=== PATIENT | male | born 1970 | race Caucasian/White ===

== ENCOUNTER 2023-08-16 11:41 | Emergency (ER) | payer BC, SELFPAY ==
--- NOTE | ~2023-08-16 | XR_ITS ---
EXAMINATION: XR CHEST CLINICAL INFORMATION: Right-sided chest pain COMPARISON: None available. TECHNIQUE: 2 views of the chest were obtained. FINDINGS: No significant abnormality is noted involving the heart, lungs, mediastinum, bony thorax or soft tissues. XR/XR chest 2V IMPRESSION: Unremarkable examination.
--- NOTE | 2023-08-16 11:43 | ECG_ITS ---
Test Reason : CHEST PAIN Blood Pressure : / mmHG Vent. Rate : 102 BPM Atrial Rate : 102 BPM P-R Int : 148 ms QRS Dur : 094 ms QT Int : 364 ms P-R-T Axes : 026 023 032 degrees QTc Int : 474 ms Sinus tachycardia Otherwise normal ECG No previous ECGs available Referred By: Generic ED Physician Electronically Signed By:Valentin Connors
[2023-08-16 12:03] VITALS: BP 146/101; PULSE 100; RESP 18; TEMP 36.5; O2SAT 98; BMI 31.8
--- NOTE | 2023-08-16 12:04 | ED.CHESTPAIN ---
HPI - Chest Pain General Chief Complaint: Chest Pain Stated Complaint: Chest pain rad to back Time Seen by Provider: 08/16/23 17:42 Source: patient, RN notes reviewed and old records reviewed Mode of arrival: ambulatory Limitations: no limitations History of Present Illness HPI narrative: 52-year-old male with past medical history significant for hypertension and renal stones presents to the ED today for evaluation of acute onset right-sided chest pain that began while at work this morning. 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 Since this time he has had approximately 7 episodes of pain. Pain radiates to the back. Denies exacerbating or relieving factors. He did not take any [id number] medications prior to arrival in ED. he has never had pain like this previously. He does admit to superficial left lower extremity clot following COVID last year. He was not placed on any anticoagulation for this. He has not currently on anticoagulation or aspirin. Admits to commuting 1 hour to work every day. As a construction equipment operator, there are times where he is very sedentary at work. Denies any other recent travel or long car rides. Denies history of [place]. denies recent sick contacts. Denies headache, dizziness, syncope, palpitations, shortness of breath, dyspnea, calf pain/tenderness, swelling of the extremities. Related Data Previous Rx's ?Medication ?Instructions ?Recorded indomethacin 25 mg capsule 25 mg PO TID #20 caps 08/16/23 prednisone 20 mg tablet 40 mg (2 x 20 mg) PO DAILY 5 days 08/16/23 #10 tabs Allergies Allergy/AdvReac Type Severity Reaction Status Date / Time No Known Allergies Allergy Verified 08/16/23 12:06 Review of Systems Review of Systems: Constitutional: No fever, chills, fatigue, night sweats, weight changes ENT/Mouth: No ear pain, hearing loss, nasal congestion, sinus pain, rhinorrhea, sore throat Eyes: No eye pain, swelling, redness, vision changes, discharge Cardio: No palpitations, BROWNE, orthopnea, peripheral edema, +chest pain Pulm: No SOB, cough, sputum, wheezing, dyspnea, hemoptysis GI: No nausea, vomiting, hematemesis, abdominal pain, diarrhea, constipation, hematochezia, melena : No irregular bleeding, dysuria, frequency, urgency, hesitancy, hematuria, flank pain, urinary flow changes, urinary incontinence or retention MSK: No back pain, neck pain, joint pain, myalgias Skin: No lesions, rashes Neuro: No weakness, numbness, paresthesias, LOC, dizziness, headache Psych: No anxiety/panic, depression, SI/HI, AH/VH All other systems reviewed and are negative. [facility] Past Medical History Attestation statement: The following information was validated with the patient. Source: old records reviewed and nursing notes reviewed Social History Social History Advance Directives: No Advance Directives Information Provided: No Do you have a plan to hurt others: No Plan Physical Exam Vital Signs: Vital Signs: Last Vital Signs Temp 97.7 F 08/16/23 12:03 Pulse 91 08/16/23 18:11 Resp 18 08/16/23 18:11 BP 150/89 H 08/16/23 18:11 Pulse Ox 96 08/16/23 18:11 O2 Del Method Room Air 08/16/23 18:11 BMI result Body Mass Index 31.8 Patient hypertensive and tachycardic, vitals otherwise WNL. Const: General: cooperative, healthy appearing, comfortable and no acute distress Orientation/consciousness: patient oriented x3 Limitations: no limitations HEENT: Head: Yes normal to inspection, Yes No palpable skull fracture present, Yes normocephalic and Yes atraumatic Eyes: General: appearance normal, both eyes and all related structures Conjunctivae: conjunctivae normal Sclerae: sclerae normal Pupils: Equal, round and reactive pupils present Neck: Neck: Yes normal visual inspection, Yes full ROM, Yes no lymphadenopathy and Yes no JVD Chest: Chest palpation & inspection: normal inspection of the chest and normal palpation of entire chest wall Resp: Effort & Inspection: normal respiratory effort and able to speak in complete sentences Auscultation: clear to auscultation bilaterally Cardio: Other: no peripheral edema Jugular venous distension: no JVD Rate: tachycardic Rhythm: regular rhythm Skin: General skin exam: no rashes or lesions noted Neuro: General: patient oriented x3 and gait normal Cranial nerves: Yes Equal, round and reactive pupils present Extrem: General: Yes normal to inspection, Yes capillary refill normal, Yes no pedal edema and Yes no calf tenderness Course Course Course Narrative: This is a Rapid Medical Examination (RME) performed by Teto Leal PA-C in triage. Full HPI, ROS, assessment and treatment plan per primary provider in the Main ED. 52 yo male with HTN presents to the ER for evaluation of right sided stabbing chest pain that comes and goes - started at 9 am when he was in a meeting. pain radiates to the back, constant level 1/10 and shoots up to a 10/10. intermittent SOB and nausea. No recent travel, no leg swelling. AAO X3 in triage, appears well, not diaphoretic. tachycardic, reg rhythm HR low 100s. lungs CTAB. chest wall is nontender to palpation. no LE edema. Plan: EKG, CXR, labs Reevaluation(s) Reevaluation #1: 9443-- CBC without leukocytosis or left shift. No anemia. H&H stable. Chemistry without acute electrolyte abnormality requiring intervention. BUN 17, creatinine 1.17. Normal liver function. Troponin undetectable x2 > ACS unlikely. EKG showing sinus tachycardia with a rate of 102 beats per minute, QT 364, QTC 474, no acute ischemic changes or ST elevations. Chest x-ray unremarkable. No signs of pneumonia or effusion. > labs, EKG and imaging all ordered prior to my assumption of care. Given patient has a PERC score of 2 with unremarkable cardiac workup, D-dimer ordered to rule out PE. 1838-- D-dimer undetectable > PE unlikely. No clear etiology for right-sided chest pain. Question pleurisy vs costochondritis. Will send patient home with indomethacin and prednisone. Discussed all workup results with patient. At this time, I feel patient is safe for discharge. Patient has remained stable throughout ED visit today. Discussed worrisome signs and symptoms and when to return to the ED. All questions answered at this time. Patient is agreeable with disposition and stable for discharge. Medications Administered Discontinued Medications Generic Name Dose Route Start Last Admin Trade Name Freq PRN Reason Stop Dose Admin Ketorolac Tromethamine 30 mg 08/16/23 17:48 08/16/23 18:13 Ketorolac Tromethamine 30 Mg/Ml Vial IM 08/16/23 17:49 Not Given ONCE ONE Medical Decision Making Medical Decision Making MDM Narrative: 52-year-old male with past medical history significant for hypertension and renal stones presents to the ED today for evaluation of acute onset right-sided chest pain that began while at work this morning. Patient hypertensive to 146/101. He has a history of hypertension and reports taking his medications this morning. He is also tachycardic to 100. Vitals otherwise WNL. Afebrile. He is nontoxic-appearing and in no acute distress. Sitting comfortably on the exam bed. On my exam, regular rate and rhythm. Lungs are CTA bilaterally. No JVD. No calf tenderness. No peripheral edema. No rashes. Differential diagnosis includes ACS, arrhythmia, pneumonia, costochondritis, pleuritis, PE. Lower suspicion for GERD, pancreatitis. Unlikely pleural effusion. Labs, EKG, chest x-ray obtained prior to my assumption of care. Will obtain D-dimer and re-evaluate. Differential Diagnosis Differential Diagnoses: The differential diagnosis associated with the presentation includes As above Admission/Observation Not indicated Lab Data MDM Lab Attestation statement: I reviewed the patient's lab results. As above 08/16/23 12:13 08/16/23 12:13 Labs: Lab Results 08/16/23 08/16/23 08/16/23 Range/Units 12:13 17:15 18:10 WBC 6.2 (4.8-10.8) X10*3/uL RBC 5.13 (4.60-5.80) X10*6/uL Hgb 15.3 (14.0-18.0) g/dl Hct 43.4 (42.0-52.0) % MCV 84.6 (80.0-98.0) fL MCH 29.8 (27.0-33.0) pg MCHC 35.3 (31.0-36.0) g/dl RDW 12.6 (11.0-16.0) % Plt Count 202 (160-400) X10*3/uL MPV 9.1 L (9.4-12.4) fL Immature Gran % (Auto) 0.3 (0.0-0.4) % Neut % (Auto) 66.0 (45-73) % Lymph % (Auto) 24.4 (20-40) % Ferry % (Auto) 7.5 (2-11) % Eos % (Auto) 1.1 (0-4) % Baso % (Auto) 0.7 (0-2) % Lymph # (Auto) 1.5 (1.2-4.9) X10*3/uL Ferry # (Auto) 0.5 (0.1-1.2) X10*3/uL Eos # (Auto) 0.1 (0.0-0.4) X10*3/uL Baso # (Auto) 0.0 (0.0-0.2) X10*3/uL Abs Immat Gran (auto) 0.02 (0.00-0.03) X10*3/uL Absolute Neuts (auto) 4.1 (2.0-8.3) x10*3/uL Absolute Nucleated RBC 0.000 (0.0-0.012) X10*3/uL Nucleated RBC % (auto) 0.0 (0.0-0.2) /100WBC PT 11.0 L (11.1-13.3) SEC INR 0.9 (0.9-1.1) APTT 31.7 (26.0-36.8) SEC D-Dimer High Sensitivty < 150 NG/ML Sodium 139 (135-145) mmol/L Potassium 3.4 (3.3-5.1) mmol/L Chloride 104 (96-108) mmol/L Carbon Dioxide 23 (22-29) mmol/L Anion Gap 15 (12-20) BUN 17 H (9-16) mg/dL Creatinine 1.17 (0.5-1.4) mg/dL Estim Creat Clear Calc 95.1 Estimated GFR > 60 Random Glucose 91 (60-115) mg/dL Calcium 10.0 (8.4-10.2) mg/dL Magnesium 2.1 (1.6-2.6) mg/dL Total Bilirubin 0.6 (0.0-1.0) mg/dL Direct Bilirubin 0.2 (0.0-0.5) mg/dL AST 27 (5-37) U/L ALT 50 H (0-40) U/L Alkaline Phosphatase 82 (39-117) U/L Troponin I High Sens < 2.7 < 2.7 (<3.5-35.0) ng/L Total Protein 7.9 (6.5-8.0) g/dL Albumin 4.4 (3.5-5.0) g/dL Independent Interpretation I performed an independent interpretation of an: Plain X-Ray Interpretation: Chest x-ray does not demonstrate infiltrate or consolidation, agree with radiologist's interpretation. EKG showing sinus tachycardia at a rate of 102 beats per minute, QT 364, QTC 474, no acute ischemic changes or ST elevations. No priors to compare to. Radiology Impression Discussion of test interpretation with radiology: I have reviewed the radiologist's reading. Radiologist Impression: EXAMINATION: XR CHEST CLINICAL INFORMATION: Right-sided chest pain COMPARISON: None available. TECHNIQUE: 2 views of the chest were obtained. FINDINGS: No significant abnormality is noted involving the heart, lungs, mediastinum, bony thorax or soft tissues. XR/XR chest 2V IMPRESSION: Unremarkable examination. Prescription Management I considered prescription management with: Pain Medication Chronic Conditions Patient?s care impacted by: Hypertension Social Determinants Patient?s care significantly limited by Social Determinants of Health including: Other Social Determinant of Health Critical Care Time Critical Care Time Critical Care Time: Yes Total Critical Care Time: 40 Attestation: Critical care time in the amount of 40 minutes has been provided to the patient in terms of direct patient care, frequent reevaluation, review and interpretation of medical data and results, and management of potentially life-threatening conditions. This is all outside of any medical procedures. Discharge Plan Discharge Clinical Impression: Chest pain Patient Disposition: Home, Self-Care Instructions: Chest Pain (ED), Noncardiac Chest Pain (ED) Additional Instructions: Your labs today are reassuring. You do not have a blood clot. Your EKG is normal. Your chest x-ray is normal. There is no clear etiology for your chest pain. Indomethacin as an anti-inflammatory that has been sent to your pharmacy. Take this as needed for pain/discomfort. Do not take this with other NSAIDs such as ibuprofen or Aleve as this may cause increased risk of GI bleeding. Prednisone is a steroid that has been sent to your pharmacy for you to take for the next 5 days. Please follow-up with your primary care provider. Return with new or worsening symptoms. In the case of an emergency call 911. Prescriptions: New indomethacin 25 mg capsule 25 mg PO TID Qty: 20 0RF Rx Instructions: administer with food or milk prednisone 20 mg tablet 40 mg PO DAILY 5 Days Qty: 10 0RF Referrals: [facility] [Provider Group] [facility] [Provider Group] [facility] [Provider Group] Print Language: Lao
[2023-08-16 12:19] LABS: MANUAL DIFF FLAG NO
[2023-08-16 12:22] LABS: Basophils Percent Auto 0.7 % (0-2); Eosinophils Absolute Auto 0.1 X10*3/uL (0.0-0.4); Eosinophils Percent Auto 1.1 % (0-4); Hematocrit 43.4 % (42.0-52.0); Hemoglobin 15.3 g/dl (14.0-18.0); Imm Gran Abs Auto 0.02 X10*3/uL (0.00-0.03); Imm Gran Pct Auto 0.3 % (0.0-0.4); Lymphocytes Absolute Auto 1.5 X10*3/uL (1.2-4.9); Lymphocytes Percent Auto 24.4 % (20-40); Mean Corpuscular HGB Conc 35.3 g/dl (31.0-36.0); Mean Corpuscular Hemoglobin 29.8 pg (27.0-33.0); Mean Corpuscular Volume 84.6 fL (80.0-98.0); Mean Platelet Volume 9.1 fL (9.4-12.4); Monocytes Absolute Auto 0.5 X10*3/uL (0.1-1.2); Monocytes Percent Auto 7.5 % (2-11); Neutrophils Absolute Auto 4.1 x10*3/uL (2.0-8.3); Platelet Count 202 X10*3/uL (160-400); Red Blood Count 5.13 X10*6/uL (4.60-5.80); Red Cell Distribution Width 12.6 % (11.0-16.0); White Blood Count 6.2 X10*3/uL (4.8-10.8)
[2023-08-16 12:31] LABS: INTERNATIONAL NORM RATIO 0.9 (0.9-1.1)
[2023-08-16 12:33] LABS: Partial Thromboplastin Time 31.7 SEC (26.0-36.8)
[2023-08-16 12:35] LABS: Alanine Aminotransferase 50 U/L (0-40); Albumin Level 4.4 g/dL (3.5-5.0); Alkaline Phosphatase 82 U/L (39-117); Anion Gap 15 (12-20); Aspartate Amino Transferase 27 U/L (5-37); Bilirubin Direct 0.2 mg/dL (0.0-0.5); Bilirubin Total 0.6 mg/dL (0.0-1.0); Blood Urea Nitrogen 17 mg/dL (9-16); Carbon Dioxide 23 mmol/L (22-29); Chloride 104 mmol/L (96-108); Creatinine Clr Calc Pharmacy 95.1; Estimated Glomerular Filt Rate > 60; Glucose Random 91 mg/dL (60-115); Magnesium 2.1 mg/dL (1.6-2.6); Potassium 3.4 mmol/L (3.3-5.1); Sodium 139 mmol/L (135-145); Total Protein 7.9 g/dL (6.5-8.0)
[2023-08-16 12:47] LABS: Troponin-I High Sensitivity < 2.7 ng/L (<3.5-35.0)
[2023-08-16 17:44] LABS: Troponin-I High Sensitivity < 2.7 ng/L (<3.5-35.0)
[2023-08-16 18:11] VITALS: BP 150/89; PULSE 91; RESP 18; O2SAT 96
[2023-08-16 18:26] LABS: D Dimer High Sensitivity < 150 NG/ML
[2023-08-16 20:00] VITALS: BP 144/83; PULSE 89; RESP 16; TEMP 36.7; O2SAT 97
== END 2023-08-16 20:01 | disposition home or self-care (01) ==
PROVIDERS: Physician Assistant; Physician Assistant Medical; Emergency Provider Emergency Medicine
DX: R07.9 Chest pain, unspecified (principal); I10 Essential (primary) hypertension; Z79.899 Other long term (current) drug therapy
CPT/HCPCS: 36415; 71046; 80048; 80076; 83735; 84484; 85025; 85379; 85610; 85730; 93005; 99284; 99285

== ENCOUNTER → 2023-08-16 11:43 | Outpatient (BNV) | payer SELFPAY | PROVIDERS: Visit Provider Internal Medicine Cardiovascular Disease | DX: R07.9 Chest pain, unspecified (principal) | CPT/HCPCS: 93010 ==